=== PATIENT | male | born 1940 | race African-American/Black ===

== ENCOUNTER 2017-12-14 11:45 | Emergency (ER) | payer OTHER ==
[~2017-12-14] VITALS: Ht 172.7 cm; Wt 95.3 kg
[~2017-12-14 11:45] MED LIST: CIPRO500 MG PO; FLONASE 0.05%50 MCG NASAL; HYDROCHLOROTHIA25 M2 PO; HYDROCODONE-AP1 EAC6 PO; PEPCID20 MG PO
[2017-12-14] MEDS ORDERED: LISINOPRIL5 MG PO (13:21)
[2017-12-14] MEDS ORDERED: ANORO ELLIPTA1 EACH INH (13:21)
[2017-12-14] MEDS ORDERED: VOLTAREN GEL 1100 G2 TOP (13:21)
[2017-12-14] MEDS ORDERED: SEROQUEL 50 MG50 MG (13:21)
[2017-12-14] MEDS ORDERED: ESOMEPRAZOLE MA20 MG PO (13:22)
[2017-12-14] MEDS ORDERED: AMBIEN 5 MG TABL5 M1 PO (13:23)
[2017-12-14 14:00] VITALS: BP 140/77
== END 2017-12-14 14:00 | disposition home or self-care (01) ==
LOC: ER 11:45
DX: T78.3XXA Angioneurotic edema, initial encounter (principal); I10 Essential (primary) hypertension; Z88.0 Allergy status to penicillin; Z88.2 Allergy status to sulfonamides; Z88.5 Allergy status to narcotic agent; Z85.46 Personal history of malignant neoplasm of prostate; Z87.440 Personal history of urinary (tract) infections; X58.XXXA Exposure to other specified factors, initial encounter